=== PATIENT | female | born 1955 | race Caucasian/White ===

== ENCOUNTER 2019-05-11 12:26 | Emergency (ER) | payer MEDICARE, SELFPAY ==
[2019-05-11 12:27] VITALS: BP 153/78; PULSE 86; RESP 18; TEMP 36.6; O2SAT 96; BMI 31.6
--- NOTE | 2019-05-11 12:55 | CT_ITS ---
STUDY: CT ABDOMEN AND PELVIS WITHOUT CONTRAST REASON FOR EXAM: Female, 64 years old. PT STATED LEFT SIDED ABDOM PAIN, HX OF DIVERTICULITIS, APPY, ROMELIA, HYSTERECTOMY RADIATION DOSAGE (If Supplied By Facility): CTDIvol = ( 15.14 ) mGy, DLP = ( 839.94 ) mGycm TECHNIQUE: Transaxial images were obtained from the dome of the diaphragm to the symphysis pubis without oral contrast, and without intravenous contrast. Sagittal and coronal images were reconstructed. Individualized dose optimization techniques were used for this CT. COMPARISON: Comparison is made with prior examination November 02, 2013. FINDINGS: The visualized lung bases are unremarkable. The visualized portions of the heart are within normal limits. Normal liver. There are surgical clips in the gallbladder fossa consistent with a prior cholecystectomy. Normal spleen. Normal pancreas. Normal bilateral adrenal glands. 2 mm nonobstructive calculus in the lower pole calyx of the right kidney. 2 mm crackers in the lower pole calyx of the left kidney. Normal visualized stomach. Normal small intestine. Large amount of fecal material is seen throughout the colon worse in the left hemicolon. There is evidence of scattered sigmoid diverticula. There are surgical clips in the region of the appendix consistent with a prior appendectomy. There is diffuse atherosclerotic calcification of the abdominal aorta, without a demonstrated aneurysm. Normal inferior vena cava. Normal retroperitoneum. Normal urinary bladder. There is absence of the uterus consistent with a prior hysterectomy. Normal abdominal wall. There are degenerative changes of the visualized lumbar spine. CT/Abdomen/Pelvis without Cont IMPRESSION: Large amount of fecal material is seen in the colon worse in the left hemicolon as well as rectosigmoid colon. Scattered sigmoid diverticula. Stable nonobstructive bilateral intrarenal calculi. Electronically Signed: Kishan Jones, at 14:17 EST , Service support ,
[2019-05-11] MEDS: Ondansetron 4 MG/2 ML Vial IV (13:25)
[2019-05-11] MEDS: 0.9% Normal Saline 1,000 ML 125 ML IV (13:25)
[2019-05-11] MEDS: morphine 8 MG/ML Syringe IV (13:25)
--- NOTE | 2019-05-11 13:26 | ED.VIS.GEN ---
History of Present Illness Chief Complaint: Abd Pain Informant: Patient, Family Onset: Month(s) Maximum Severity: Mild Narrative: The patient presents complaining of left-sided abdominal pain chronically for many months she is seen multiple outpatient providers. She has history of bladder cancer she is seen and treated by Dr. Watson her urologist, who she just saw and everything was within normal range no other therapy is required by urology, she has history of diverticulitis for which she is seen by a local surgeon in her community she was also seen by Dr. Cottrell her PCP. The left side abdominal pain is sometimes been ongoing there is a concern that it is related to her bladder cancer UTI diverticulitis she has been on a variety of different therapies by a variety of these providers as above including most recently being started on Augmentin and then Flagyl was added a few days ago. She is able to eat and drink her urine output has been relatively normal she indicates she is slightly constipated, she reports improvement with the Flagyl but still has the pain The pain that she is having is something that is chronic and ongoing Past Medical History - Allergies and Home Meds Allergies/Adverse Reactions: Allergies acetaminophen [From Percocet] Allergy (Verified 05/11/19 12:31) Itching oxycodone [From Percocet] Allergy (Verified 05/11/19 12:31) Itching Sulfa (Sulfonamide Antibiotics) Allergy (Verified 05/11/19 12:31) Hives alprazolam [From Xanax] Adverse Reaction (Verified 05/11/19 12:31) confusion Primary Care Physician: Marc Cottrell [Primary Care Provider] - Past Medical History: - Smoking Status: Current every day smoker Review of Systems ROS: - As above General: Denies: Chills, Fever, Sweats Eyes: Denies: Visual changes - bilaterally, Diplopia ENT: Denies: Rhinorrhea, Sore throat Cardiovascular: Denies: Chest pain, Palpitations Respiratory: Denies: Dyspnea, Cough, Dyspnea on exertion Gastrointestinal: Reports: Abdominal pain. Denies: Nausea, Vomiting, Diarrhea, Melena, Hematochezia Genitourinary: Denies: Dysuria, Hematuria, Frequency Musculoskeletal: Denies: Back pain, Extremity Pain Skin: Denies: Rash, Wounds Neurological: Denies: Headache, Weakness, Numbness Physical Exam Vital Signs/Narrative: Vital Signs Temp Pulse Resp BP Pulse Ox 05/11/19 12:27 98 F 86 18 153/78 H 96 General: Well nourished, Well developed, No Acute Distress Head: Normocephalic, Atraumatic Eyes: Perrl, EOMI ENT: Moist mucous membranes, No rhinorrhea Neck: Supple, Nontender Cardiovascular: Regular rate, Regular rhythm, No murmurs Respiratory: No distress, CTA bilaterally, Chest nontender Abdomen: Soft, Nontender, Nondistended, Normal bowel sounds, - - Very soft nontender abdomen she complains of pain to the left side of the abdomen there is no focality to it there is no rebound guarding organomegaly there is no back pain she assures me this is the typical pain that she is experienced for many many months Back: Nontender, Normal Inspection Extremities: Nontender, No edema Skin: Normal color, No rash Neurological: Alert, Oriented x3, Cranial nerves II-XII grossly intact, Normal Strength, Normal Sensation Psychological: Normal affect, Normal Mood Diagnostic/Tx/Re-eval - Medical Decision Making Given her age and her complaints and her past history she assures me 1 week ago she saw her urologist and her evaluation was unremarkable that included a scope procedure in the office that was negative and she was told she would need to follow-up with her PCP other physicians for ongoing abdominal pain Screening ED evaluation is remarkable for the fact that her UA shows signs of UTI, this is peculiar as she reports she just saw her urologist for the symptoms and everything was unremarkable, in addition her abdominal CT shows what appears to be a large amount of stool her left hemicolon nothing else acute please see all of the reports her white count and chemistries were unremarkable, UA and urine culture were sent I reviewed her medications with her now she has been taking Augmentin and Flagyl it is not clear to me how she was taking them I suspect she was taking them intermittently, I have paged Dr. Cottrell to discuss the case with him her PCP, at this time the plan is to have her take both the Augmentin and the Flagyl she was given IV Rocephin she will follow-up in the office of her PCP and/or urologist to have results of urine culture evaluated to see if antibiotic adjustment needs to be made in addition she will stay on a high-fiber diet add MiraLAX and return for change in symptoms, she was comfortable with this plan Home stable Final impression urinary tract infection, history of diverticulitis, history of bladder cancer, ED Disposition - Plan for ED Patient: Instructions: ABDOMINAL PAIN, Unknown Cause, (Female), CONSTIPATION (Adult), Bladder Infection, Female (Adult) Referrals: Marc Cottrell [Primary Care Provider] - Additional Instructions: Please take both the Flagyl and the Augmentin until gone, follow-up with either your PCP or urologist to have urine culture results analyzed for need to change antibiotics Please start taking MiraLAX with each meal
[2019-05-11 13:28] LABS: Bacteria 0 SEEN /hpf (None Seen); Mucous, Urine 0 SEEN /hpf (<or=2+)
[2019-05-11 13:29] LABS: Absolute Lymphocyte Count 2.25 X10^3/uL (0.83-4.51); Basophil# 0.03 X10^3/uL; Basophil% 0.3 % (0-1); Eosinophil# 0.07 X10^3/uL; Eosinophils% 0.8 % (0-5); Hematocrit 47.3 % (37-47); Hemoglobin 15.6 g/dL (12.0-15.0); Lymphocyte # 2.25 X10^3/ul (4.0); Lymphocyte % 25.1 % (19-41); Mean Corpuscular Hgb 31.8 pg (27.0-32.0); Mean Corpuscular Volume 96.5 fL (81-99); Mean Platelet Vol. 10.2 fl (6.2-12.0); Monocyte% 6.7 % (0-10); NRBC Flagged by Analyzer 0 % (0-5); Neutrophil # 5.99 X10^3/uL (2.7-7.7); Neutrophil % 66.8 % (47-70); Platelet Count 317 K/mm3 (150-450); RBC Distribution Width CV 12.8 % (11.6-14.6); RBC Distribution Width SD 45.4 fl (35.1-43.9)
[2019-05-11 13:33] LABS: Color, Urine Amber (Yellow); Glucose, Dipstick Normal (Normal); Ketone-Dipstick 15 mg/dl (Negative); Leukocyte Esterase-Dipstick 100 /ul (Negative); Nitrite-Dipstick Positive (Negative); Occult Blood-Urine 25 /ul (Negative); Protein-Dipstick 30 mg/dl (Negative); Specific Gravity, Urine 1.025 (1.002-1.030); Urine Clarity Sl. Cloudy (Clear); Urine Urobilinogen 4 mg/dl (Normal)
[2019-05-11 13:36] LABS: Urine Bilirubin Dipstick 3 mg/dL (Negative)
[2019-05-11 13:41] LABS: Red Blood Cells-Urine 0-5 SEEN /hpf (0-5); Squamous Epithelial Cells - UA 0-5 SEEN /hpf (5-10); White Blood Cells 10-25 SEEN /hpf (0-5)
[2019-05-11 13:45] LABS: AST(SGOT) 7 U/L (15-37); Alanine Aminotransfer ALT/SGPT 16 U/L (13-56); Albumin, Serum 3.4 g/dL (3.2-5.0); Alkaline Phosphatase 87 U/L (45-117); Anion Gap 3 (5-15); BUN 12 mg/dL (7-18); BUN/Creat Ratio 20.4 RATIO (10-20); Bilirubin, Direct 0.15 mg/dL (0.00-0.30); Chloride 109 mmol/L (98-107); Creatinine, Serum 0.59 mg/dL (0.55-1.02); EST Glomerular Filtration Rate 109 mL/min (>60); Est Glom Filt Rate - Afr Amer 132 mL/min (>60); Estimated Creatinine Clearance 47.79 ml/min; Globulin 3.5 g/dL (2.2-4.2); Glucose 110 mg/dL (74-106); Lipase 64 U/L (73-393); Potassium 3.8 mmol/L (3.5-5.1); Protein, Total 6.9 g/dL (6.4-8.2); Sodium Level 142 mmol/L (136-145)
[2019-05-11] MEDS: Ceftriaxone 1 GM/50 ML BAG IV (14:54)
[2019-05-11] MEDS: Morphine 4 MG/ML Syringe IV (14:55)
[2019-05-11 15:53] VITALS: BP 146/67; PULSE 85; RESP 16; O2SAT 95
== END 2019-05-11 15:54 | disposition home or self-care (01) ==
PROVIDERS: Emergency Provider Emergency Medicine; PCP Family Medicine
DX: N39.0 Urinary tract infection, site not specified (principal); Z87.19 Personal history of other diseases of the digestive system; Z85.51 Personal history of malignant neoplasm of bladder; K59.00 Constipation, unspecified; F17.200 Nicotine dependence, unspecified, uncomplicated
CPT/HCPCS: 74176; 80048; 80076; 81001; 83690; 85025; 87086; 87088; 96361; 96365; 96374; 96375; 96376; 99283; J7030; A4216; J2405

== ENCOUNTER 2019-05-15 14:33 | Emergency (ER) | payer MEDICARE, SELFPAY ==
[2019-05-15 14:35] VITALS: BP 149/77; PULSE 88; RESP 16; TEMP 36.5; O2SAT 96; BMI 30.6
--- NOTE | 2019-05-15 15:11 | ED.VISSUMM ---
- ER Visit Summary Date of Service: 05/15/19 Chief Complaint: Constipation History of Present Illness: The patient is a 64 F hx of diverticulosis. Treated emergency permanent several days ago. At that time a CAT scan the labs which showed constipation. Says she has been using MiraLAX without any results. States he is only had 3 bowel movements the entire month the last bowel movement was approximately 10 days ago. Dry heaves. No fever. No dysuria. Physical Examination: Older female no acute distress vital signs stable afebrile. H EENT exam unremarkable. Neck nontender no lymphadenopathy. Lungs clear to auscultation bilaterally. Heart regular rhythm no murmur. Abdomen soft. Nondistended. Normal bowel sounds no signs of obstruction. No hernias or masses. Right upper and right lower quadrant are both unremarkable. Mild tenderness left lower quadrant. No peritoneal signs. Extremities moves all 4. Neurologically she is awake alert. Test Results: I reviewed her labs and CAT scan from the other day. The CAT scan is consistent with constipation. Emergency Department Course and Treatment: Discussed treatment options with the patient and she is requesting a soapsuds enema. Nurse attempted a soapsuds enema. Patient really was not able to hold much of it in or for very long so it was unsuccessful. She was then given magnesium citrate she drank about half of 1 of the bottles and said she preferred to do this at home. Treatment Plan: Plenty of fluids and rest. Stool softener. Fiber. Magnesium citrate as needed. Disposition: Discharged to home Impression: Acute constipation This note was generated with [employer] dictation software. It may contain incorrect words, spelling, and punctuation that were not noted in review of the chart prior to signing ED Disposition - Plan for ED Patient: Instructions: CONSTIPATION (Adult) Referrals: Marc Cottrell [Primary Care Provider] - 3-5 Days if not improving Additional Instructions: Plenty of fluids, fruits, vegetables and fiber. Magnesium citrate as needed. Follow-up with your doctor if not improving.
--- NOTE | 2019-05-15 15:14 | ED.DEP ---
ED Disposition - Plan for ED Patient: Instructions: CONSTIPATION (Adult) Referrals: Marc Cottrell [Primary Care Provider] - 3-5 Days if not improving Additional Instructions: Plenty of fluids, fruits, vegetables and fiber. Magnesium citrate as needed. Follow-up with your doctor if not improving.
[2019-05-15] MEDS: Ondansetron ODT 4 MG Tablet PO ×2 (17:10→18:24)
[2019-05-15] MEDS: Magnesium Citrate 300 ML PO ×2 (17:58→18:24)
[2019-05-15 18:28] VITALS: BP 140/90; PULSE 89; RESP 18; O2SAT 97
== END 2019-05-15 18:29 | disposition home or self-care (01) ==
PROVIDERS: Emergency Provider Emergency Medicine; PCP Family Medicine
DX: K59.00 Constipation, unspecified (principal); R11.2 Nausea with vomiting, unspecified; K57.90 Diverticulosis of intestine, part unspecified, without perforation or abscess without bleeding; Z90.49 Acquired absence of other specified parts of digestive tract; Z72.0 Tobacco use
CPT/HCPCS: 99285

== ENCOUNTER 2019-05-16 03:42 | Emergency (ER) | payer MEDICARE, SELFPAY ==
[2019-05-15 14:35] VITALS: BMI 30.6
[2019-05-16 03:43] VITALS: BP 157/81; PULSE 99; RESP 20; TEMP 36.7; O2SAT 92; BMI 30.4
--- NOTE | 2019-05-16 03:57 | ED.VIS.GEN ---
History of Present Illness Chief Complaint: Constipation Informant: Patient Narrative: Patient stated she was seen twice earlier this week for lower left abdominal pain. She has a history of this pain for the last 2 months. She has seen providers as an outpatient. She had lab work that initially showed a UTI and was also treated for diverticulitis. Patient is on Augmentin and finishing her last day today. She is also on Flagyl. She stated the pain is persisted throughout. She was seen in the emergency department approximately 5 days ago and had lab work and imaging that showed left-sided constipation. She was seen approximately 12 hours ago and underwent a soapsuds enema but could not hold it well. She has not had a bowel movement. She went home and tried mag citrate but vomited up. Comes back for further evaluation. She has had constipation in the past. She stated for bowel preps in the past she has had to be admitted to the hospital and given her bowel prep over 2 days. Patient has had a bowel movement for several days now. Past Medical History - Allergies and Home Meds Allergies/Adverse Reactions: Allergies acetaminophen [From Percocet] Allergy (Verified 05/16/19 03:47) Itching oxycodone [From Percocet] Allergy (Verified 05/16/19 03:47) Itching Sulfa (Sulfonamide Antibiotics) Allergy (Verified 05/16/19 03:47) Hives alprazolam [From Xanax] Adverse Reaction (Verified 05/16/19 03:47) confusion Primary Care Physician: Marc Cottrell [Primary Care Provider] - Prior records reviewed: Yes Past Medical History: - - Lower abdominal pain, UTI, diverticulitis, constipation Surgical History: - - Reviewed Lives: With Family Smoking Status: Current every day smoker Alcohol: None Drugs: None Review of Systems General: Denies: Chills, Fever, Sweats Eyes: Denies: Visual changes - bilaterally, Diplopia ENT: Denies: Rhinorrhea, Sore throat Cardiovascular: Denies: Chest pain, Palpitations Respiratory: Denies: Dyspnea, Cough, Dyspnea on exertion Gastrointestinal: Reports: Abdominal pain, Nausea, Vomiting, Constipation. Denies: Diarrhea, Melena, Hematochezia Genitourinary: Denies: Dysuria, Hematuria, Frequency Musculoskeletal: Denies: Back pain, Extremity Pain Skin: Denies: Rash, Wounds Neurological: Denies: Headache, Weakness, Numbness Physical Exam Vital Signs/Narrative: Vital Signs Temp Pulse Resp BP Pulse Ox 05/16/19 03:43 98.1 F 99 20 H 157/81 H 92 General: Well nourished, Well developed, No Acute Distress Head: Normocephalic, Atraumatic Eyes: Perrl, EOMI ENT: Moist mucous membranes, No rhinorrhea Neck: Supple, Nontender Cardiovascular: Regular rate, Regular rhythm, No murmurs Respiratory: No distress, CTA bilaterally, Chest nontender Abdomen: Soft, Nondistended, Normal bowel sounds, Tender - Mild tenderness left lower abdomen without guarding or rebound. Negative for: Nontender Back: Nontender, Normal Inspection Extremities: Nontender, No edema Skin: Normal color, No rash Neurological: Alert, Oriented x3, Cranial nerves II-XII grossly intact, Normal Strength, Normal Sensation Psychological: Normal affect, Normal Mood Diagnostic/Tx/Re-eval - Medical Decision Making Patient given IV fluids and Zofran. Lab work obtained. Patient did feel better after Zofran. Also given a dose of Tylenol which seemed to help with her discomfort. Repeat lab work shows a leukocytosis of 15,000. This is slightly elevated from previous. Electrolytes do not show any major abnormalities. Discussed with the hospitalist. At this time the patient does not feel comfortable going home. She was just discharged home 12 hours ago. She has not been able to have a bowel movement for over 10 days. She is requesting admission with bowel prep as an inpatient to help her eliminate feces. Discussed with the hospitalist. He will observe her in the hospital with treatment. I have a low suspicion for diverticulitis. She is on Flagyl and Augmentin. I do not feel she needs a repeat CAT scan Spoke to the hospitalist and decided to go home. She will be discharged with Zofran and GoLYTELY ED Disposition - Plan for ED Patient: Disposition: Home or Assisted Living Diagnosis: Constipation, Nausea and vomiting Instructions: CONSTIPATION (Adult) Prescriptions: [id number]/Sod Sulf,Bicarb,Cl/KCl [Golytely Solution] 8 ml PO Q2H PRN PRN #1 soln.recon PRN Reason: Constipation Transmission Status: Received by [id number]/Sod Sulf,Bicarb,Cl/KCl [Golytely Solution] 8 ml PO Q2H PRN PRN #1 soln.recon PRN Reason: Constipation Prescription Printed Ondansetron [Zofran Odt] 4 mg PO Q8H PRN PRN #10 tab PRN Reason: Nausea Transmission Status: Received by [facility] [id number] Ondansetron [Zofran Odt] 4 mg PO Q8H PRN PRN #10 tab PRN Reason: Nausea Prescription Printed Referrals: Marc Cottrell [Primary Care Provider] -
[2019-05-16 04:13] LABS: Absolute Lymphocyte Count 1.31 X10^3/uL (0.83-4.51); Absolute Neutrophil Count 13.3 X10^3/uL (2.0-7.7); Basophil# 0.05 X10^3/uL; Basophil% 0.3 % (0-1); Eosinophil# 0.02 X10^3/uL; Eosinophils% 0.1 % (0-5); Hematocrit 50.2 % (37-47); Hemoglobin 16.5 g/dL (12.0-15.0); Lymphocyte # 1.31 X10^3/ul (4.0); Lymphocyte % 8.4 % (19-41); Mean Corp Hgb Conc 32.9 g/dL (32-36); Mean Corpuscular Hgb 31.5 pg (27.0-32.0); Mean Corpuscular Volume 95.8 fL (81-99); Mean Platelet Vol. 10.3 fl (6.2-12.0); Monocyte# 0.82 X10^3/uL; Monocyte% 5.3 % (0-10); NRBC Flagged by Analyzer 0 % (0-5); Neutrophil # 13.25 X10^3/uL (2.7-7.7); Neutrophil % 85.4 % (47-70); Platelet Count 344 K/mm3 (150-450); RBC Distribution Width CV 12.8 % (11.6-14.6); RBC Distribution Width SD 45.2 fl (35.1-43.9); Red Blood Count 5.24 M/mm3 (4.2-5.4); White Blood Count 15.5 K/mm3 (4.4-11.0)
[2019-05-16] MEDS: 0.9% Normal Saline 1,000 ML 1000 ML IV (04:16)
[2019-05-16] MEDS: Ondansetron 4 MG/2 ML Vial IV (04:16)
[2019-05-16 04:29] LABS: Anion Gap 9 (5-15); BUN 13 mg/dL (7-18); BUN/Creat Ratio 23.9 RATIO (10-20); Calcium,Total 8.5 mg/dL (8.5-10.1); Chloride 105 mmol/L (98-107); Creatinine, Serum 0.54 mg/dL (0.55-1.02); EST Glomerular Filtration Rate 119 mL/min (>60); Est Glom Filt Rate - Afr Amer 144 mL/min (>60); Glucose 143 mg/dL (74-106); Potassium 4.1 mmol/L (3.5-5.1); Sodium Level 141 mmol/L (136-145)
[2019-05-16] MEDS: Ketorolac 15 MG/ML Vial IV (04:35)
== END 2019-05-16 05:37 | disposition home or self-care (01) ==
PROVIDERS: Emergency Provider Emergency Medicine; PCP Family Medicine
DX: K59.00 Constipation, unspecified (principal); R11.2 Nausea with vomiting, unspecified; Z87.440 Personal history of urinary (tract) infections; Z87.19 Personal history of other diseases of the digestive system; F17.200 Nicotine dependence, unspecified, uncomplicated
CPT/HCPCS: 80048; 85025; 96361; 96374; 96375; 99283; J7030; A4216; J2405

== ENCOUNTER 2019-05-19 12:00 | Emergency (ER) | payer MEDICARE, SELFPAY ==
[2019-05-19 12:00] VITALS: BP 137/74; PULSE 93; RESP 16; TEMP 36.6; O2SAT 94; BMI 30.2
--- NOTE | 2019-05-19 12:12 | ED.VIS.GEN ---
History of Present Illness Chief Complaint: Abd Pain Detail of Chief Complaint: Left sided abdominal pain x2 months Informant: Patient, Family Onset: Month(s) Context: Gradual Onset Timing: Continuous Quality: Pain Location: Left side of abdomen Current Severity: Mild Maximum Severity: Severe Worsened by: Nothing Relieved by: Nothing Associated Symptoms: Nausea and vomiting x2 today and no BM x1 week Narrative: Patient is had several presentations for abdominal pain found to have constipation. Patient states she only drank half a glass of GoLYTELY when seen last week. CT of the abdomen that time revealed diverticular disease without evidence of diverticulitis and significant amount of fecal stasis especially left side of the colon. She reports chills. She states she had chills for 2 months. She reports fever and then corrected herself and said she has not had a fever since March. He does report mild discomfort with urination. She denies frequency or urgency. She denies hematuria. She denies back pain. She has not noticed a bulge in her groin. She has no history of hernia. She denies vaginal bleeding. She denies radicular pain. Denies saddle paresthesia or anesthesia. She denies weakness in her lower extremities. She does report generalized weakness. She states she sleeps a lot. Asked if she is sad and she responded yes I am sad because of this abdominal pain . Daughter states she is had poor p.o. intake. She lives with daughter. Prior similar symptoms: Yes Recent Illness/Hospitalization: Yes - Past Medical History (1) Depression Status: Acute Past Medical History - Allergies and Home Meds Allergies/Adverse Reactions: Allergies acetaminophen [From Percocet] Allergy (Verified 05/19/19 12:03) Itching oxycodone [From Percocet] Allergy (Verified 05/19/19 12:03) Itching Sulfa (Sulfonamide Antibiotics) Allergy (Verified 05/19/19 12:03) Hives alprazolam [From Xanax] Adverse Reaction (Verified 05/19/19 12:03) confusion Primary Care Physician: Marc Cottrell [Primary Care Provider] - Prior records reviewed: Yes Surgical History: - - Reviewed Lives: With Family Smoking Status: Current every day smoker Alcohol: None Drugs: None Review of Systems General: Reports: Chills, Malaise, Weight loss. Denies: Fever, Subjective, Sweats Eyes: Denies: Visual changes - bilaterally, Blurred Vision - bilaterally ENT: Denies: Rhinorrhea, Sore throat Cardiovascular: Denies: Chest pain, Palpitations Respiratory: Denies: Dyspnea, Cough, Dyspnea on exertion Gastrointestinal: Reports: Abdominal pain, Nausea, Vomiting, Constipation. Denies: Diarrhea, Melena, Hematochezia Genitourinary: Reports: Dysuria. Denies: Hematuria, Frequency Musculoskeletal: Denies: Myalgias, Arthralgias, Neck pain, Back pain, Swelling, Extremity Pain, -, - Skin: Denies: Rash, Wounds Neurological: Reports: Weakness. Denies: Parasthesia, Numbness Psych: Reports: Depression. Denies: Anxiety, Suicidal thoughts, Suicidal ideations Hematologic: Denies: Easy bruising, Easy bleeding Physical Exam Vital Signs/Narrative: Vital Signs Temp Pulse Resp BP Pulse Ox 05/19/19 12:00 98 F 93 16 137/74 H 94 Inital Vital Signs reviewed: Yes General: Well nourished, Well developed, No Acute Distress Head: Normocephalic, Atraumatic Eyes: Perrl, EOMI ENT: No rhinorrhea, Dry mucous membranes Neck: Supple, Nontender, No lymphadenopathy, No JVD Cardiovascular: Regular rate, Regular rhythm, No murmurs, Normal S1, Normal S2 Respiratory: No distress, CTA bilaterally, Chest nontender Abdomen: Soft, Nondistended, No masses, Tender - Patient has pain to light touch of her skin., Hypoactive bowel sounds. Negative for: Normal bowel sounds, Hepatomegaly, Splenomegaly, Mass, Pulsatile mass, Ventral hernia, Inguinal hernia, Umbilical hernia Back: Nontender, Normal Inspection Extremities: Nontender, No edema Skin: Normal color, No rash Neurological: Alert, Oriented x3, Cranial nerves II-XII grossly intact, Normal Strength, Normal Sensation Psychological: Depressed Diagnostic/Tx/Re-eval Chest X-Ray - ED: Read by ED Physician, - - You x-ray of the abdomen reveals a normal chest exam with normal cardiac silhouette and size. Mediastinum is normal. Lung parenchyma is normal. Also structures are normal. Patient has increased fecal matter noted on the abdominal series with an ossific gas pattern. Impressions Acute Abdomen Series 05/19/19 13:06 IMPRESSION: Normal x-ray examination of the chest, abdomen, and pelvis. Electronically Signed: Roverto Justice MD at 13:50 EST Tel , Service support , 05/19/19 13:06 Acute Abdomen Inc Chest [RAD] Stat Laboratory Results 05/19/19 05/19/19 05/19/19 12:19 12:19 13:10 WBC 11.7 H RBC 4.95 Hgb 15.6 H Hct 47.7 H MCV 96.4 MCH 31.5 MCHC 32.7 RDW Std Deviation 45.8 H RDW Coeff of Des 12.9 Plt Count 345 MPV 10.4 Immature Gran % (Auto) 0.500 Neut % (Auto) 75.4 H Lymph % (Auto) 15.7 L [place] % (Auto) 7.8 Eos % (Auto) 0.3 Baso % (Auto) 0.3 Absolute Neuts (auto) 8.8 H Absolute Lymphs (auto) 1.84 Nucleated RBC % 0 Sodium 139 Potassium 3.6 Chloride 104 Carbon Dioxide 30.0 Anion Gap 5 BUN 12 Creatinine 0.60 Estim Creat Clear Calc 49.80 Est GFR (MDRD) Af Amer 129 Est GFR (MDRD) Non-Af 107 BUN/Creatinine Ratio 20.1 H Glucose 127 H Calcium 8.9 Urine Color Yellow Urine Clarity Sl. Cloudy Urine pH 5.0 Ur Specific [place] 1.020 Urine Protein 15 H Urine Glucose (UA) Normal Urine Ketones 50 H Urine Occult Blood 25 H Urine Nitrite Negative Urine Bilirubin 3 H Urine Urobilinogen 8 H Ur Leukocyte Esterase 25 H Urine RBC 0 SEEN Urine WBC 0-5 SEEN Ur Squamous Epith Cells 0-5 SEEN Calcium Oxalate Crystal 1+ Urine Bacteria 1+ Urine Mucus 0 SEEN Since patient reported dysuria and there is evidence of bacteria with positive leukoesterase and blood on macro and 5 WBCs on micro will treat with Macrobid for acute cystitis. Patient was informed the cause of her abdominal pain is obstipation. She was given specific instructions to help move her bowels and she has not had a bowel movement in 1 week. - Medical Decision Making Mitra patient appears dehydrated. IV was established and she will receive 1 L of normal saline. Because family reports poor p.o. intake will obtain basic metabolic panel to assess electrolytes and more specifically renal function. Abdominal series was obtained to confirm suspicion that patient has significant constipation. Because she complained of mild discomfort with urination UA was obtained. ED Disposition - Plan for ED Patient: Disposition: Home or Assisted Living Diagnosis: Obstipation, Acute cystitis Instructions: CONSTIPATION (Adult), Urinary Tract Infections in Women Prescriptions: Nitrofurantoin Macrocrystals [Macrobid] 100 mg PO Q12 #10 cap Transmission Status: Pending to [id number] Referrals: Marc Cottrell [Primary Care Provider] - 3-5 Days if not improving Additional Instructions: Tomorrow morning drink 10 ounces of mag citrate. 4 hours later drink a glass of MiraLAX. Drink a glass of MiraLAX every 1-2 hours until you have results.
[2019-05-19 12:35] LABS: Absolute Lymphocyte Count 1.84 X10^3/uL (0.83-4.51); Absolute Neutrophil Count 8.8 X10^3/uL (2.0-7.7); Basophil# 0.03 X10^3/uL; Basophil% 0.3 % (0-1); Eosinophil# 0.04 X10^3/uL; Eosinophils% 0.3 % (0-5); Hematocrit 47.7 % (37-47); Hemoglobin 15.6 g/dL (12.0-15.0); Lymphocyte # 1.84 X10^3/ul (4.0); Lymphocyte % 15.7 % (19-41); Mean Corp Hgb Conc 32.7 g/dL (32-36); Mean Corpuscular Hgb 31.5 pg (27.0-32.0); Mean Corpuscular Volume 96.4 fL (81-99); Mean Platelet Vol. 10.4 fl (6.2-12.0); Monocyte# 0.92 X10^3/uL; Monocyte% 7.8 % (0-10); NRBC Flagged by Analyzer 0 % (0-5); Neutrophil # 8.84 X10^3/uL (2.7-7.7); Neutrophil % 75.4 % (47-70); Platelet Count 345 K/mm3 (150-450); RBC Distribution Width CV 12.9 % (11.6-14.6); RBC Distribution Width SD 45.8 fl (35.1-43.9); Red Blood Count 4.95 M/mm3 (4.2-5.4); White Blood Count 11.7 K/mm3 (4.4-11.0)
[2019-05-19] MEDS: 0.9% Normal Saline 1,000 ML 1000 ML IV (12:44)
[2019-05-19] MEDS: Ondansetron 4 MG/2 ML Vial IV (12:44)
[2019-05-19 12:46] LABS: Anion Gap 5 (5-15); BUN 12 mg/dL (7-18); BUN/Creat Ratio 20.1 RATIO (10-20); Calcium,Total 8.9 mg/dL (8.5-10.1); Chloride 104 mmol/L (98-107); EST Glomerular Filtration Rate 107 mL/min (>60); Est Glom Filt Rate - Afr Amer 129 mL/min (>60); Glucose 127 mg/dL (74-106); Potassium 3.6 mmol/L (3.5-5.1); Sodium Level 139 mmol/L (136-145)
--- NOTE | 2019-05-19 13:06 | RAD_ITS ---
STUDY: X-RAY - ACUTE ABDOMINAL SERIES REASON FOR EXAM: Female, 64 years old. CONSTIPATION AND ABDOMEN PAIN MOSTLY LOWER LEFT BUT RADIATES THROUGHOUT ABDOMEN PER PATIENT. HAS BEEN HAVING ISSUES OF CONSTIPATION FOR ABOUT 2 OR MONTHS NOW WITH NAUSEA. HX OF APPENDECTOMY, GB REMOVED AND A HYSTERECTOMY. TECHNIQUE: Single view of the chest. Supine, and erect view(s) of the abdomen were obtained. COMPARISON: 10/28/2011 FINDINGS: The lungs are clear and expanded. Normal size heart. Normal mediastinum and bismark. Normal visualized pulmonary arteries. Normal visualized aortic arch and descending thoracic aorta. There is a non-specific bowel gas pattern. The soft tissue structures of the abdomen and pelvis are unremarkable. Mild dextroscoliosis the lumbar spine with degenerative disc disease. Status post cholecystectomy. RAD/Acute Abdomen Inc Chest IMPRESSION: Normal x-ray examination of the chest, abdomen, and pelvis. Electronically Signed: Roverto Justice MD at 13:50 EST Tel , Service support ,
[2019-05-19 13:16] LABS: Mucous, Urine 0 SEEN /hpf (<or=2+); Red Blood Cells-Urine 0 SEEN /hpf (0-5)
[2019-05-19 13:18] LABS: Color, Urine Yellow (Yellow); Glucose, Dipstick Normal (Normal); Ketone-Dipstick 50 mg/dl (Negative); Leukocyte Esterase-Dipstick 25 /ul (Negative); Nitrite-Dipstick Negative (Negative); Occult Blood-Urine 25 /ul (Negative); Protein-Dipstick 15 mg/dl (Negative); Urine Clarity Sl. Cloudy (Clear); Urine Urobilinogen 8 mg/dl (Normal)
[2019-05-19 13:19] LABS: Urine Bilirubin Dipstick 3 mg/dL (Negative)
[2019-05-19 13:27] LABS: Bacteria 1+ /hpf (None Seen); Calcium Oxalate Crystals Ur 1+ /hpf (<or=2+); Squamous Epithelial Cells - UA 0-5 SEEN /hpf (5-10); White Blood Cells 0-5 SEEN /hpf (0-5)
[2019-05-19] MEDS: Nitrofurantoin Macrocrystals 100 MG Capsule PO (14:14)
[2019-05-19 14:15] VITALS: PULSE 88; RESP 17; O2SAT 97
== END 2019-05-19 14:15 | disposition home or self-care (01) ==
PROVIDERS: Emergency Provider Emergency Medicine; PCP Family Medicine
DX: K59.00 Constipation, unspecified (principal); N30.00 Acute cystitis without hematuria; K57.90 Diverticulosis of intestine, part unspecified, without perforation or abscess without bleeding; F32.9 Major depressive disorder, single episode, unspecified; Z79.899 Other long term (current) drug therapy; F17.200 Nicotine dependence, unspecified, uncomplicated
CPT/HCPCS: 74022; 80048; 81001; 85025; 96361; 96374; 99284; J7030; A4216; J2405